=== PATIENT | male | born 1945 | race Hispanic/Latino ===

== ENCOUNTER 2019-12-14 14:10 | IRF | payer MEDICARE, OTHER, SELFPAY ==
--- NOTE | ~2019-12-14 | CT_ITS ---
EXAMINATION: CT soft tissue neck wo con DATE: 12/24/2019 14:17 INDICATION: Dysphagia. TECHNIQUE: Computed tomography (CT) of the neck was performed without intravenous contrast. Automated exposure control and iterative reconstruction technique were employed. The dose-length product was 5 92.73 mGy-cm. COMPARISON: None FINDINGS: There are likely changes of ocular lens replacement surgeries. There is an old blowout frac ture of medial wall of left orbit. There are surgical clips in right neck. There is fluid and gas claudy ng the left cervical carotid arteries. There is a 10 mm peripherally calcified nodule in right thyroi d lobe, likely not clinically significant. Median sternotomy wires and mediastinal surgical clips may be from coronary bypass grafting. There is a 16 x 10 mm mass in superficial left parotid gland. Ther e is multifocal dental disease. There is moderate cervical spondylosis. IMPRESSION: 1. Fluid and gas along the left cervical carotid arteries, consistent with recent carotid endarterect william. 2. Multifocal dental disease. 3. 16 x 10 mm mass in superficial left parotid gland. The differential diagnosis includes benign mixe d tumor, Warthin tumor, reactive lymphadenopathy, and less likely primary malignancy or rosa maria metasta tic disease. Reviewed, dictated and finalized at location A. IMPRESSION: 1. Fluid and gas along the left cervical carotid arteries, consistent with rece nt carotid endarterectomy. 2. Multifocal dental disease. 3. 16 x 10 mm mass in superficial left parotid gland. The differential diagnosi s includes benign mixed tumor, Warthin tumor, reactive lymphadenopathy, and les s likely primary malignancy or rosa maria metastatic disease.
--- NOTE | 2019-12-14 15:43 | ADMGEN ---
This patient, Leeroy Monte, was admitted to [facility] Room 220-01. Patient/family oriented to hospital policies and general routines including ID bracelet, bed and alarms, visiting hours, pain management, procedures, bathroom and other care routines, personal items, smoking policy, room service/diet, and visiting hours. Valuables list has been completed. Information on how to activate the Rapid Response Team has been discussed. Patient/Family are encouraged to report perceived risks to care and to ask questions if they do not understand what they are told or what they should do.
[2019-12-14 15:59] VITALS: BMI 19.9
[2019-12-14 16:25] VITALS: BP 154/59; PULSE 77; RESP 19; TEMP 36.6; O2SAT 100
[2019-12-14 17:30] VITALS: PULSE 77
[2019-12-14] MEDS: METOPROLOL SUCCINATE EXT REL 50 MG TABCR PO (17:30)
[2019-12-14] MEDS: ATORVASTATIN 40 MG TABLET PO (20:26)
[2019-12-14 21:11] VITALS: BP 145/55; PULSE 83; RESP 20; TEMP 36.8; O2SAT 100
[2019-12-15 05:14] LABS: Basophils Percent Auto 0.5 % (0.2-1.2); Eosinophils Absolute Auto 0.1 K/mm3 (0-0.3); Eosinophils Percent Auto 2.1 % (0-4.4); Hematocrit 29.6 % (42.0-52.0); Hemoglobin 9.6 g/dL (14.0-18.0); Immature Granulocyte Absolute 0.03 K/mm3 (0.00-0.031); Immature Granulocyte Percent A 0.5 % (0-0.5); Lymphocytes Absolute Auto 1.37 K/mm3 (0.9-3.2); Mean Corpuscular HGB Conc 32.4 g/dl (32-36); Mean Corpuscular Volume 95.5 fl (80-100); Mean Platelet Volume 11.3 fl (7.4-10.4); Monocytes Absolute Auto 0.7 K/mm3 (0.1-0.6); Monocytes Percent Auto 11.8 % (2.6-8.5); Neutrophils Absolute Auto 3.5 K/mm3 (1.3-6.7); Neutrophils Percent Auto 61.1 % (45.5-73.1); Platelet Count Result 201 k/mm3 (150-375); Red Cell Distribution Width 13.5 % (11.5-14.5); White Blood Count 5.7 K/mm3 (4.5-10.0)
[2019-12-15 05:35] LABS: Blood Urea Nitrogen 20 mg/dL (9-20); Calcium 8.7 mg/dL (8.4-10.2); Carbon Dioxide 29 mmol/L (22-30); Chloride 99 mmol/L (98-107); Estimated CRCL calculation 46 ml/min; Estimated Glomerular Filt Rate > 60; Glucose 135 mg/dL (75-110); Sodium 138 mmol/L (137-145)
[2019-12-15 06:00] VITALS: BP 161/62; PULSE 68; RESP 20; TEMP 36.6; O2SAT 100
[2019-12-15 08:00] VITALS: PULSE 68; RESP 20; O2SAT 100
--- NOTE | 2019-12-15 08:49 | PCSTNOTE ---
Bedside Swallow Evaluation This pt was seen for a bedside swallow evaluation following a CVA. He reports that his ST at another facility advised him to moisten food with liquid to ease swallowing. He had a bagel with breakfast this morning, moistened with coffee, and no signs or symptoms of aspiration occurred. He was also observed drinking thin liquid and eating pureed food. All trials were WFL. The pt reports that swallowing has gotten easier since the stroke. He was having more difficulty passing the bolus through the pharyngeal stage, but is no longer with the use of compensatory strategies. It is recommended that the pt continue to receive an oral diet of regular (level 7) foods and thin liquids. The pt should eat independently. He should continue to use his compensatory strategies of small bites and mixing solids with liquids. No skilled ST is warranted at this time for swallowing.
[2019-12-15 10:14] VITALS: PULSE 68
[2019-12-15] MEDS: ASPIRIN 81 MG CHEWABLE TABLET 324 MG PO (10:14)
[2019-12-15] MEDS: polyethylene glycoL 3350 17 GM POWD.PACK PO (10:14)
[2019-12-15] MEDS: METOPROLOL SUCCINATE EXT REL 50 MG TABCR PO (10:14)
--- NOTE | 2019-12-15 14:12 | REHAB_ITS ---
DATE OF SERVICE: 12/15/2019 A 74-year-old right-handed male has been admitted to [facility] Rehab Floor with the diagnosis of left body involvement that is right side of the brain secondary to cerebrovascular accident, admitted on 12/14/2019, seen on 12/15/2019 at 12 o'clock. HISTORY OF PRESENT ILLNESS: A 74-year-old right-handed male with past medical significant history of: 1. Diabetes mellitus. 2. Bilateral below-knee amputation. 3. Coronary artery disease. 4. Hypertension. Presented to [facility] on 12/03/2019, with right facial drooping and speech difficulties and with subsequent development of numbness, tingling and weakness of the left arm and left lower extremity. Neurologists were consulted. Carotid duplex study and MRI of the brain were done, which revealed severe stenosis of the left internal carotid artery. CT of the brain and neck was ordered, revealed severe narrowing of the left middle cerebral artery about 70% with severe critical stenosis of left cervical artery or cervical internal carotid artery about 95%, [id number] narrowing of the left vertebral artery V1 segment and intracranial portion of the right internal carotid artery in the cavernous portion, but the patient weakness however was on the same side. It was assumed that collateral flow was impaired supplying the right hemisphere, causing CV on the left side as per the neurologist's and the final diagnosis for left carotid TIA and right CVA, and he underwent left carotid endarterectomy on 12/09/2019. Postoperatively, experienced hypotension, developed UTI. He needed midodrine on 12/06/2019, completed 7-day course of ceftriaxone, 12/10/2019. Continued to have left-sided weakness, impaired balance, decreased gross motor control, and decreased safety awareness. He was using bilateral lower extremity prosthesis with the history that right side was done on 2004, left in 2010. He was started on DVT prophylaxis with heparin 5000 units twice a day. PAST MEDICAL HISTORY: Atherosclerotic heart disease, coronary artery disease, congestive heart failure, chronic kidney disease, diabetes mellitus, dyslipidemia, hypertension, urinary retention, renal stones with hematuria, gout, vitamin D deficiency, diabetes mellitus, history of bilateral amputation of the lower extremities, history of open heart surgery, and history of never smoking, never drinking. MEDICATIONS: At the time of transfer included: 1. Aspirin 324 mg daily. 2. Atorvastatin 40 mg every night. 3. Heparin 5000 units twice a day. 4. Metoprolol 550 mg daily. 5. Midodrine 2.5 mg 3 times a day. 6. Polyethylene glycol 17 g daily. PRIOR LEVEL OF FUNCTIONS: Independently eating, oral hygiene, toileting, shower, bathing, upper body, lower body, footwear, rolling left and right, right [id number]-[id number], rbgcc-ej-[id number], xwz-hl-ziveh, bed to chair, chair to bed transfer, toilet transfer, walking assistive device, rolling walker, walking distance 500 feet. He stairs independent only 2 steps, expressing complex message without difficulty with speech that is clear and easy to understand. LEVEL OF FUNCTION AT THE TIME OF ADMISSION: Eating screening, independent eating. Partial moderate assistance for the oral hygiene, toileting, bathing, shower, upper body dressing, lower body dressing, footwear, rolling left and right, xnf-dv-mcjky, vizgb-ov-lfq. Substantial maximal assistance for sit to stand, chair to bed, bed to transfer. Maximal and substantial assistant office manager same for the toilet transfer, walking, rolling walker assistive device. Walking distance 20 feet. His stairs not tested. At the time of acceptance, he was independent, expect improvement in self-care, transfer and expected improvement was to make him independent in the self-care transfers, social cognitive
[2019-12-15 14:29] VITALS: BP 98/48; PULSE 69; RESP 18; TEMP 36.8; O2SAT 100
[2019-12-15] MEDS: ATORVASTATIN 40 MG TABLET PO (20:32)
[2019-12-15] MEDS: MELATONIN 3 MG TABLET 6 MG PO (21:02)
[2019-12-15 22:00] VITALS: BP 157/59; PULSE 65; RESP 17; TEMP 36.6; O2SAT 100
[2019-12-16 06:00] VITALS: BP 148/72; PULSE 88; RESP 18; TEMP 36.6; O2SAT 98
[2019-12-16 08:47] VITALS: PULSE 88
[2019-12-16] MEDS: polyethylene glycoL 3350 17 GM POWD.PACK PO (08:47)
[2019-12-16] MEDS: METOPROLOL SUCCINATE EXT REL 50 MG TABCR PO (08:47)
[2019-12-16] MEDS: ASPIRIN 81 MG CHEWABLE TABLET 324 MG PO (08:47)
--- NOTE | 2019-12-16 11:16 | RPD ---
INDIVIDUALIZED PLAN OF CARE FOR Leeroy Monte Brief Synthesis of Pre-Admission Screen, Post-Admission Evaluation and Therapy Evaluations: The patient presents to rehab with right cerebrovascular accident. Comorbidities include Left carotid TIA, severe left carotid artery stenosis status post left carotid endarterectomy, hypertension, hypotension, left-sided weakness, bilateral below knee amputations, diabetes mellitus, microcytic anemia, vitamin D deficiency, congestive heart failure, chronic kidney disease, gout, left upper extremity edema, dyslipidemia, hyperkalemia, mild dysarthria.The patient requires physician services for neurology services, medical oversight, and coordination of care. Emotional needs will be monitored as depression is a common sequelae of stroke. The patient needs physician monitoring and treatment of anemia, perioperative blood loss, monitoring for adverse reactions to new medications, monitoring for infection, and monitoring of blood pressure since new medication introduced to combat hypotension and is known to cause hypertensive emergency. The patient requires nursing services for frequent neuro checks, anticoagulation therapy, medication management and education, pressure relief and skin care management, monitoring of labs, bowel and bladder training, diabetes management and education, and fall/safety precautions. Deficits include:ADLs, Balance, Endurance, Mobility, Pain Management, ROM, Safety, Speech,Strength, Transfers Activity Therapy Specialist/Case Management for: Discharge Planning and Patient/Family Counseling Physical Therapy: 5 days per week for 90 minutes. Treatments may include: Therapeutic Exercise, Gait Training, Neuromuscular Re-education, Transfer Training, Community Reintegration, Bed Mobility, Patient/Family Education, Wheelchair Mobility Group Therapy/Concurrent Therapy Rationales: -Improve attention span during functional activities in a distracted environment. -Enhance problem solving and/or adequate judgment skills during functional activities in a distracted environment. -Promote increased safety awareness in a distracted environment to reduce fall risk with functional tasks, transfers, and ambulation to allow a more safe, self-sufficient return to the home environment. -Improve dynamic balance skills to promote safety and independence with functional activities in a distracted environment for maximum gain. Occupational Therapy: 5 days per week for 90 minutes. Treatments may include: Therapeutic Exercise, Therapeutic Activity, Cognitive Training, Self-Care Transfer Training, Community Reintegration, Home Management, Patient/Family Education, Wheelchair Mobility Training, Energy Conservation Training Group Therapy/Concurrent Therapy Rationales: -Allow therapist to observe and teach generalization and carry-over of skills learned in individual therapy. -Enhance problem solving and sequencing skills during therapeutic activities in a distracted environment. -Promote increased safety awareness in a realistic setting to reduce fall risk with functional tasks due to visual and verbal distractions. -Increase functional level with ADLs, ADL transfers and use of adaptive equipment through therapeutic activities with others while promoting safety to allow a more safe, self-sufficient return home. Medical Prognosis: Good Anticipated Length of Stay: 12 days Rehab Goals: Eating Goal: 06-Independent Oral Hygiene Goal: 06-Independent Toileting Hygiene Goal: 03-Partial/Moderate Assistance Shower/Bathe Self Goal: 05-Setup or Clean Up Assistance Upper Body Dressing Goal: 06-Independent Lower Body Dressing Goal: 05-Setup or Clean Up Assistance Putting On/Taking Off Footwear Goal: 05-Setup or Clean Up Assistance Rolling Left and Right Goal: 06-Independent Sit to Lying Goal: 06-Independent Lying to Sitting on Side of Bed Goal: 06-Independent Sit to Stand Goal: 06-Independent Chair/Zrf-ye-Rmqrd Transfer Goal: 06-Independent Toilet
[2019-12-16 13:37] VITALS: BMI 19.9
[2019-12-16 14:00] VITALS: BP 122/45; PULSE 62; RESP 19; TEMP 36.6; O2SAT 100
--- NOTE | 2019-12-16 15:24 | REHAB_ITS ---
DATE OF SERVICE: 12/14/2019 PRIMARY REHAB IMPAIRMENT CATEGORY: Stroke. ETIOLOGICAL DIAGNOSIS: Right cerebrovascular accident. The patient was seen [id number] yesterday and admission history and physical examination was dictated, but this is being re-dictated, more papers are available. HISTORY OF PRESENT ILLNESS: A 74-year-old right-handed male with past medical history of significant: 1. Diabetes mellitus. 2. Bilateral below-knee amputations. 3. Coronary artery disease. 4. Hypertension. Initially presented to [facility] on 12/03/2019, with right facial droop and speech difficulties and subsequently developed numbness and tingling and weakness of the left upper extremity and left lower extremity. Neurology service was consulted and the patient underwent carotid duplex scan and MRI of the brain, which revealed severe stenosis of the left internal carotid artery with the left-sided weakness. CT of the brain and neck were ordered and revealed severe narrowing of the left middle cerebral artery about 70% with severe critical stenosis of left cervical artery or cervical internal carotid artery about 95% and a [id number]-nn-mprcoz narrowing of the left vertebral artery V1 segment and moderate narrowing of the intracranial portion of the right internal carotid artery in the cavernous portion. The patient weakness however was on the same side of the critical narrowing. Dr. De Dios was consulted, who concluded that, because of severe stenosis, collateral flow was impaired, supplying the right hemisphere, causing a cerebrovascular accident on the same side that is on the left side. Final diagnoses were left carotid TIA and right CVA. He underwent a left carotid endarterectomy on 12/09/2019. Postoperatively, he experienced hypotension, urinary tract infection. Midodrine was started on 12/06/2019. He was monitored so that he does not experience hypertensive emergency. He completed 7-day course of ceftriaxone, 12/10/2019. Physical examination continued to reveal left-sided weakness, impaired balance, decreased gross motor control, and decreased safety awareness. He had bilateral lower extremity prosthesis, which he was going to bring with him. DVT prophylaxis was started with subcutaneous heparin 5000 units twice daily. Therapy was initiated at the acute care facility and patient transferred to us from [facility] on 12/14/2019. SURGERY OR FALL: The patient had a major surgery in the 100 days prior to admission, has had carotid endarterectomy. He has had no falls in the past year. He has had no fall with injury in the past year. PAST MEDICAL HISTORY: Atherosclerotic heart disease of the [place] coronary artery without angina pectoralis, coronary artery disease, congestive heart failure, chronic kidney disease, diabetes mellitus, dyslipidemia, essential hypertension, UTI, kidney stones, hematuria, renal disorder, gout, microcytic anemia, vitamin D deficiency, and diabetes mellitus. PAST SURGICAL HISTORY: Bilateral amputation of the lower extremities upon and open heart surgery. SOCIAL HISTORY: Never smoker. No alcohol. No drug use. FAMILY HISTORY: Unknown. PRIOR LEVEL OF FUNCTION: Eating was independent, so as the oral care, toileting hygiene, shower and bathing, upper body, lower body, footwear, rolling left and right, sit to lying, lying to sitting, sit to stand, bed to chair, toilet transfer. The patient was previously ambulating independently with rolling walker 500 feet and he was able to complete 2 stairs independently. CURRENT LEVEL OF FUNCTION: Eating was independent. Oral care with partial moderate assistance. Toilet and hygiene were partial moderate assistance, so as the shower and bathing. Upper body dressing, lower body dressing, footwear, rolli
[2019-12-16] MEDS: ATORVASTATIN 40 MG TABLET PO (19:54)
[2019-12-16] MEDS: MELATONIN 3 MG TABLET 6 MG PO (19:56)
[2019-12-16 22:00] VITALS: BP 152/56; PULSE 63; RESP 17; TEMP 36.5; O2SAT 100
[2019-12-17 06:00] VITALS: BP 145/54; PULSE 66; RESP 18; TEMP 36.6; O2SAT 99
[2019-12-17 08:00] VITALS: PULSE 66; RESP 18; O2SAT 99
[2019-12-17 09:24] VITALS: PULSE 66
[2019-12-17] MEDS: polyethylene glycoL 3350 17 GM POWD.PACK PO (09:24)
[2019-12-17] MEDS: ASPIRIN 81 MG CHEWABLE TABLET 324 MG PO (09:24)
[2019-12-17] MEDS: METOPROLOL SUCCINATE EXT REL 50 MG TABCR PO (09:24)
[2019-12-17 14:00] VITALS: BP 112/43; PULSE 62; RESP 16; TEMP 36.5; O2SAT 100
--- NOTE | 2019-12-17 14:16 | WPDNEURORHBP ---
Subjective Date/time seen: 12/17/19 14:16 Interval history: this is a 74-year-old gentleman who is here after eating suffering from right hemispheric stroke which was presumed to be related to severe left internal carotid artery stenosis with the collateral flow disturbance and he underwent a left-sided carotid endarterectomy at the [facility] the patient is left with the left-sided hemiparesis which is his dominant side meaning that he is left-hand dominant the patient has bilateral BKA related to multiple factors and has left-sided hemiparesis and normal language functions He denies any headache nausea vomiting chest Chest pain and fever chills sore throat Review of Systems Review of Systems: All systems reviewed & are unremarkable except as noted in HPI and below Functional Status Ambulation Ability Ability to Ambulate 10 Feet: Minimum Assistance X 1 Ambulation Assistive Devices: Walker, Wheeled Transfers Ability Ability to Transfer In/Out of Chair: Minimum Assistance X 1 Exam Const: General: comfortable and no acute distress HENMT: General nose exam: Normal nares present Mouth: Yes moist mucous membranes Eyes: General: appearance normal, both eyes and all related structures Neck: Neck: supple and no JVD Resp: Effort & Inspection: normal respiratory effort Auscultation: clear to auscultation bilaterally Cardio: Rate: regular rate Rhythm: regular rhythm GI: GI Palp: Yes Soft to palpation Auscultation: normal bowel sounds Skin: General skin exam: normal color and no rashes or lesions noted Neuro: Other: patient is awake alert will oriented time place and person has a normal speech language function normal cranial examination left-sided hemiparesis and bilateral tkiqj-ajr-amac amputation Extrem: Other: evidence of peripheral neuropathy and peripheral vascular disease with bilateral lower extremity amputation below the knee Psych: Mental Status: mental status grossly normal Objective Data Vital Signs Vital Signs: Vital Signs - 24 hr 12/16/19 22:00 12/17/19 06:00 12/17/19 08:00 Temperature 36.5 C 36.6 C Pulse Rate 63 66 66 Respiratory Rate 17 18 18 Blood Pressure 152/56 H 145/54 H Pulse Oximetry 100 99 99 12/17/19 09:24 Temperature Pulse Rate 66 Respiratory Rate Blood Pressure Pulse Oximetry Intake/Output Intake/Output: Intake & Output 12/14/19 12/15/19 12/16/19 12/17/19 23:59 23:59 23:59 23:59 Intake Total 246 301 3436 1080 Balance 467 874 9828 1080 Meds/Results Medications: Active Medications Generic Name Dose Route Start Last Admin Trade Name Freq PRN Reason Stop Dose Admin Hydrocodone Bitart/Acetaminophen 1 tab 12/14/19 16:34 [place] 5-325 Mg PO Q4H PRN Pain (Scale Score 7-10) Aspirin 324 mg 12/15/19 09:00 12/17/19 09:24 Aspirin Chewable PO 324 mg DAILY JAY Administration Atorvastatin Calcium 40 mg 12/14/19 21:00 12/16/19 19:54 Lipitor PO 40 mg HS JAY Administration Bisacodyl 10 mg 12/14/19 16:34 Dulcolax Suppository RECTAL DAILY PRN Constipation Melatonin 6 mg 12/15/19 21:00 12/16/19 19:56 Melatonin PO 6 mg HS JAY Administration Metoprolol Succinate 50 mg 12/14/19 17:00 12/17/19 09:24 Toprol Xl PO 50 mg DAILY JAY Administration Polyethylene Glycol 17 gm 12/15/19 09:00 12/17/19 09:24 Miralax PO 17 gm DAILY JAY Administration Progress Note: A&P Assessment and Plan (1) Stroke: Code(s): I63.9 - Cerebral infarction, unspecified Status: Acute (2) Hemiparesis of left dominant side: Code(s): G81.92 - Hemiplegia, unspecified affecting left dominant side Status: Acute (3) S/P bilateral BKA (below knee amputation): Code(s): Z89.512 - Acquired absence of left leg below knee; Z89.511 - Acquired absence of right leg below knee Status: Acute (4) Diabetes mellitus: Code(s): E11.9 - Type 2 diabetes mellitus wit
[2019-12-17] MEDS: ATORVASTATIN 40 MG TABLET PO (20:17)
[2019-12-17] MEDS: MELATONIN 3 MG TABLET 6 MG PO (20:17)
[2019-12-17 21:13] VITALS: BP 116/48; PULSE 62; RESP 20; TEMP 36.4; O2SAT 98
[2019-12-18 06:00] VITALS: BP 153/60; PULSE 66; RESP 16; TEMP 36.3; O2SAT 100
[2019-12-18 08:00] VITALS: PULSE 66; RESP 16; O2SAT 100
[2019-12-18 08:50] VITALS: PULSE 66
[2019-12-18] MEDS: METOPROLOL SUCCINATE EXT REL 50 MG TABCR PO (08:50)
[2019-12-18] MEDS: polyethylene glycoL 3350 17 GM POWD.PACK PO (08:51)
[2019-12-18] MEDS: ASPIRIN 81 MG CHEWABLE TABLET 324 MG PO (08:51)
--- NOTE | 2019-12-18 10:12 | WPDNEURORHBP ---
Subjective Date/time seen: 12/18/19 10:12 Interval history: this 74-year-old patient is here after having had stroke of the right cerebral hemisphere which has left him with left-sided hemiparesis his also bilateral lower extremity [id number] amputation and wears the prosthesis and doing well with that He is complaining of urinary incontinence which is unusual we will check the urinalysis along with the culture he denies any burning or pain around the genitalia No headache nausea vomiting chest pain or shortness of breath fever chills sore throat abdominal pain diarrhea Review of Systems Review of Systems: All systems reviewed & are unremarkable except as noted in HPI and below Functional Status Ambulation Ability Ability to Ambulate 10 Feet: Minimum Assistance X 1 Ambulation Assistive Devices: Walker, Wheeled Transfers Ability Ability to Transfer In/Out of Chair: Minimum Assistance X 1 Exam Const: General: comfortable and no acute distress HENMT: General nose exam: Normal nares present Mouth: Yes moist mucous membranes Eyes: General: appearance normal, both eyes and all related structures Neck: Neck: supple and no JVD Resp: Effort & Inspection: normal respiratory effort Auscultation: clear to auscultation bilaterally Cardio: Rate: regular rate Rhythm: regular rhythm GI: GI Palp: Yes Soft to palpation Auscultation: normal bowel sounds : Male General Exam: Yes normal external exam Skin: General skin exam: normal color and no rashes or lesions noted Neuro: Other: patient is awake and alert will oriented time place and person speech and language functions are normal cranial exam shows normal he does have left-sided hemiparesis and evidence of peripheral neuropathy along with the bilateral below the knee amputation using the prosthesis Extrem: Other: bilateral [id number]-gwx-zwpa amputation using the prosthesis quite we Psych: Mental Status: mental status grossly normal Objective Data Vital Signs Vital Signs: Vital Signs - 24 hr 12/17/19 14:00 12/17/19 21:13 12/18/19 06:00 Temperature 36.5 C 36.4 C L 36.3 C L Pulse Rate 62 62 66 Respiratory Rate 16 20 16 Blood Pressure 112/43 L 116/48 L 153/60 H Pulse Oximetry 100 98 100 12/18/19 08:00 12/18/19 08:50 Temperature Pulse Rate 66 66 Respiratory Rate 16 Blood Pressure Pulse Oximetry 100 Intake/Output Intake/Output: Intake & Output 0312/16/19 12/17/19 12/18/19 23:59 23:59 23:59 23:59 Intake Total 920 1090 1560 140 Balance 920 1090 1560 140 Meds/Results Medications: Active Medications Generic Name Dose Route Start Last Admin Trade Name Freq PRN Reason Stop Dose Admin Hydrocodone Bitart/Acetaminophen 1 tab 12/14/19 16:34 [place] 5-325 Mg PO Q4H PRN Pain (Scale Score 7-10) Aspirin 324 mg 12/15/19 09:00 12/18/19 08:51 Aspirin Chewable PO 324 mg DAILY JAY Administration Atorvastatin Calcium 40 mg 12/14/19 21:00 12/17/19 20:17 Lipitor PO 40 mg HS JAY Administration Bisacodyl 10 mg 12/14/19 16:34 Dulcolax Suppository RECTAL DAILY PRN Constipation Melatonin 6 mg 12/15/19 21:00 12/17/19 20:17 Melatonin PO 6 mg HS JAY Administration Metoprolol Succinate 50 mg 12/14/19 17:00 12/18/19 08:50 Toprol Xl PO 50 mg DAILY JAY Administration Polyethylene Glycol 17 gm 12/15/19 09:00 12/18/19 08:51 Miralax PO 17 gm DAILY JAY Administration Progress Note: A&P Assessment and Plan (1) Coronary artery disease: Code(s): I25.10 - Atherosclerotic heart disease of [place] coronary artery without angina pectoris Status: Acute (2) Chronic kidney disease: Code(s): N18.9 - Chronic kidney disease, unspecified Status: Acute (3) Diabetes mellitus: Code(s): E11.9 - Type 2 diabetes mellitus without complications Status: Acute (4) S/P bilateral BKA (below knee amputation): Code(s): Z89.512 - Acquired absenc
[2019-12-18 14:00] VITALS: BP 114/43; PULSE 69; RESP 18; TEMP 36.2; O2SAT 100
[2019-12-18] MEDS: MELATONIN 3 MG TABLET 6 MG PO (20:08)
[2019-12-18] MEDS: ATORVASTATIN 40 MG TABLET PO (20:08)
[2019-12-18 21:45] VITALS: BP 120/40; PULSE 66; RESP 16; TEMP 36.3; O2SAT 100
[2019-12-19 06:00] VITALS: BP 142/59; PULSE 64; RESP 20; TEMP 36.4; O2SAT 100
[2019-12-19 08:56] VITALS: PULSE 64
[2019-12-19] MEDS: METOPROLOL SUCCINATE EXT REL 50 MG TABCR PO (08:56)
[2019-12-19] MEDS: ASPIRIN 81 MG CHEWABLE TABLET 324 MG PO (08:58)
--- NOTE | 2019-12-19 11:05 | WPDNEURORHBP ---
Subjective Date/time seen: 12/19/19 11:05 Interval history: this 74-year-old gentleman is here with a right hemispheric stroke and status post left-sided carotid endarterectomy he has a left hemiparesis which is improving his also bilateral mbnma-bpt-lehe amputation related to diabetes and most likely peripheral vascular disease. Patient denies any headache nausea vomiting chest pain or shortness of breath and quite comfortable moving forward no fever no chills no sore throat Review of Systems Review of Systems: All systems reviewed & are unremarkable except as noted in HPI and below Functional Status Ambulation Ability Ability to Ambulate 10 Feet: Minimum Assistance X 1 Ability to Ambulate 50 Feet With 2 Turns: Minimum Assistance X 1 Ambulation Assistive Devices: Walker, Wheeled Transfers Ability Ability to Transfer In/Out of Chair: Minimum Assistance X 1 Exam Const: General: comfortable and no acute distress HENMT: General nose exam: Normal nares present Mouth: Yes moist mucous membranes Eyes: General: appearance normal, both eyes and all related structures Neck: Neck: supple and no JVD Resp: Effort & Inspection: normal respiratory effort Auscultation: clear to auscultation bilaterally Cardio: Rate: regular rate Rhythm: regular rhythm GI: GI Palp: Yes Soft to palpation Auscultation: normal bowel sounds Skin: General skin exam: normal color and no rashes or lesions noted Neuro: Other: patient is awake alert well oriented time place and person speech and language functions are normal cranial exam she has normal left-sided hemiparesis is improving the patient is doing fairly well with the prosthesis after having had bilateral rglnx-ehm-[id number] amputation related to diabetes mellitus peripheral neuropathy and peripheral vascular disease Extrem: Other: the prostheses are well fitted and he is able to ambulate quite good after having had bilateral below the knee amputation few years ago Psych: Mental Status: mental status grossly normal Objective Data Vital Signs Vital Signs: Vital Signs - 24 hr 12/18/19 14:00 12/18/19 21:45 12/19/19 06:00 Temperature 36.2 C L 36.3 C L 36.4 C Pulse Rate 69 66 64 Respiratory Rate 18 16 20 Blood Pressure 114/43 L 120/40 L 142/59 H Pulse Oximetry 100 100 100 12/19/19 08:56 Temperature Pulse Rate 64 Respiratory Rate Blood Pressure Pulse Oximetry Intake/Output Intake/Output: Intake & Output 03/0212/17/19 12/18/19 12/19/19 23:59 23:59 23:59 23:59 Intake Total 1090 1560 600 240 Balance 1090 1560 600 240 Meds/Results Medications: Active Medications Generic Name Dose Route Start Last Admin Trade Name Freq PRN Reason Stop Dose Admin Hydrocodone Bitart/Acetaminophen 1 tab 12/14/19 16:34 [place] 5-325 Mg PO Q4H PRN Pain (Scale Score 7-10) Aspirin 324 mg 12/15/19 09:00 12/19/19 08:58 Aspirin Chewable PO 324 mg DAILY JAY Administration Atorvastatin Calcium 40 mg 12/14/19 21:00 12/18/19 20:08 Lipitor PO 40 mg HS JAY Administration Bisacodyl 10 mg 12/14/19 16:34 Dulcolax Suppository RECTAL DAILY PRN Constipation Melatonin 6 mg 12/15/19 21:00 12/18/19 20:08 Melatonin PO 6 mg HS JAY Administration Metoprolol Succinate 50 mg 12/14/19 17:00 12/19/19 08:56 Toprol Xl PO 50 mg DAILY JAY Administration Polyethylene Glycol 17 gm 12/15/19 09:00 12/18/19 08:51 Miralax PO 17 gm DAILY JAY Administration Progress Note: A&P Assessment and Plan (1) Coronary artery disease: Code(s): I25.10 - Atherosclerotic heart disease of [place] coronary artery without angina pectoris Status: Acute (2) Chronic kidney disease: Code(s): N18.9 - Chronic kidney disease, unspecified Status: Acute (3) Diabetes mellitus: Code(s): E11.9 - Type 2 diabetes mellitus without complications Status: Acute (4) S/P bilateral BKA (below knee amputation): C
[2019-12-19 14:00] VITALS: BP 103/41; PULSE 56; RESP 18; TEMP 36.3; O2SAT 100
[2019-12-19] MEDS: polyethylene glycoL 3350 17 GM POWD.PACK PO (16:42)
[2019-12-19] MEDS: ATORVASTATIN 40 MG TABLET PO (20:50)
[2019-12-19] MEDS: MELATONIN 3 MG TABLET 6 MG PO (20:50)
[2019-12-19 22:00] VITALS: BP 152/55; PULSE 62; RESP 20; TEMP 36.3; O2SAT 100
[2019-12-20 06:00] VITALS: BP 135/44; PULSE 57; RESP 16; TEMP 36.2; O2SAT 100
[2019-12-20 08:50] VITALS: BP 136/46; PULSE 79
[2019-12-20 08:55] VITALS: PULSE 79
[2019-12-20] MEDS: METOPROLOL SUCCINATE EXT REL 50 MG TABCR PO (08:55)
[2019-12-20] MEDS: ASPIRIN 81 MG CHEWABLE TABLET 324 MG PO (08:55)
[2019-12-20 14:00] VITALS: BP 137/57; PULSE 83; RESP 18; TEMP 36.5; O2SAT 98
--- NOTE | 2019-12-20 14:40 | WPDNEURORHBP ---
Subjective Date/time seen: 12/20/19 14:40 Interval history: this 74-year-old the diabetic is here after having had a stroke of right cerebral hemisphere with left hemiparesis and also status post left sided carotid endarterectomy. The patient denies any new complaints particularly no fever no chills no sore throat no headache nausea vomiting chest pain or shortness of breath She is doing very well in the therapy and the left-sided hemiparesis improving along with his ability to navigate with the bilateral prosthesis which she has had for some time for bilateral [id number]-hvs-jrlb amputation Review of Systems Review of Systems: All systems reviewed & are unremarkable except as noted in HPI and below Functional Status Ambulation Ability Ability to Ambulate 10 Feet: Minimum Assistance X 1 Ability to Ambulate 50 Feet With 2 Turns: Minimum Assistance X 1 Ambulation Assistive Devices: Walker, Wheeled Transfers Ability Ability to Transfer In/Out of Chair: Minimum Assistance X 1 Exam Const: General: comfortable and no acute distress HENMT: General nose exam: Normal nares present Mouth: Yes moist mucous membranes Eyes: General: appearance normal, both eyes and all related structures Neck: Neck: supple and no JVD Resp: Effort & Inspection: normal respiratory effort Auscultation: clear to auscultation bilaterally Cardio: Rate: regular rate Rhythm: regular rhythm GI: GI Palp: Yes Soft to palpation Auscultation: normal bowel sounds Skin: General skin exam: normal color and no rashes or lesions noted Neuro: Other: the patient is awake and alert well oriented in time place and person the speech and language functions are normal the cranial examination normal the left-sided hemiparesis is improving his ability to navigate in walking with bilateral prosthesis for bilateral qqney-reg-pymi amputation is quite good and he is making strides and movement Extrem: Other: bilateral bcirg-xzj-sczs amputation with prosthesis Psych: Mental Status: mental status grossly normal Objective Data Vital Signs Vital Signs: Vital Signs - 24 hr 12/19/19 22:00 12/20/19 06:00 12/20/19 08:50 Temperature 36.3 C L 36.2 C L Pulse Rate 62 57 L 79 Respiratory Rate 20 16 Blood Pressure 152/55 H 135/44 L 136/46 L Pulse Oximetry 100 100 12/20/19 08:55 Temperature Pulse Rate 79 Respiratory Rate Blood Pressure Pulse Oximetry Intake/Output Intake/Output: Intake & Output 12/17/19 12/18/19 12/19/19 12/20/19 23:59 23:59 23:59 23:59 Intake Total 1560 600 960 480 Balance 1560 600 960 480 Meds/Results Medications: Active Medications Generic Name Dose Route Start Last Admin Trade Name Freq PRN Reason Stop Dose Admin Hydrocodone Bitart/Acetaminophen 1 tab 12/14/19 16:34 [place] 5-325 Mg PO Q4H PRN Pain (Scale Score 7-10) Aspirin 324 mg 12/15/19 09:00 12/20/19 08:55 Aspirin Chewable PO 324 mg DAILY JAY Administration Atorvastatin Calcium 40 mg 12/14/19 21:00 12/19/19 20:50 Lipitor PO 40 mg HS JAY Administration Bisacodyl 10 mg 12/14/19 16:34 Dulcolax Suppository RECTAL DAILY PRN Constipation Melatonin 6 mg 12/15/19 21:00 12/19/19 20:50 Melatonin PO 6 mg HS JAY Administration Metoprolol Succinate 50 mg 12/14/19 17:00 12/20/19 08:55 Toprol Xl PO 50 mg DAILY JAY Administration Polyethylene Glycol 17 gm 12/20/19 10:58 Miralax PO DAILY PRN Constipation Progress Note: A&P Assessment and Plan (1) Coronary artery disease: Code(s): I25.10 - Atherosclerotic heart disease of [place] coronary artery without angina pectoris Status: Acute (2) Chronic kidney disease: Code(s): N18.9 - Chronic kidney disease, unspecified Status: Acute (3) Diabetes mellitus: Code(s): E11.9 - Type 2 diabetes mellitus without complications Status: Acute (4) S/P bilateral BKA (below knee amputation): Code(s): Z89.51
[2019-12-20] MEDS: ATORVASTATIN 40 MG TABLET PO (20:19)
[2019-12-20] MEDS: MELATONIN 3 MG TABLET 6 MG PO (20:21)
[2019-12-20 22:00] VITALS: BP 121/57; PULSE 62; RESP 18; TEMP 36.2; O2SAT 100
[2019-12-21 06:00] VITALS: BP 152/59; PULSE 66; RESP 18; TEMP 36.5; O2SAT 97
[2019-12-21 08:46] VITALS: PULSE 66
[2019-12-21] MEDS: METOPROLOL SUCCINATE EXT REL 50 MG TABCR PO (08:46)
[2019-12-21] MEDS: ASPIRIN 81 MG CHEWABLE TABLET 324 MG PO (08:46)
[2019-12-21 14:00] VITALS: BP 125/50; PULSE 68; RESP 18; TEMP 36.3; O2SAT 98
[2019-12-21] MEDS: MELATONIN 3 MG TABLET 6 MG PO (20:08)
[2019-12-21] MEDS: ATORVASTATIN 40 MG TABLET PO (20:08)
[2019-12-21 22:00] VITALS: BP 117/38; PULSE 73; RESP 18; TEMP 37.2; O2SAT 100
--- NOTE | 2019-12-22 03:25 | PC.NURSE ---
Daylight Savings Time For Daylight Savings Time Ending in the Fall - Clocks are moved back. For Daylight Savings Time Beginning in the Spring - Clocks are moved ahead. For [facility], the time of change occurs at 0200 hrs. Time is taken from the field observer. This entry on the patient's chart recognizes the change in time reflected during documentation. Example: 2 entries for vital signs may be charted for 0200 hrs.
[2019-12-22 05:05] LABS: Basophils Percent Auto 0.7 % (0.2-1.2); Eosinophils Absolute Auto 0.1 K/mm3 (0-0.3); Eosinophils Percent Auto 2.2 % (0-4.4); Hematocrit 28.1 % (42.0-52.0); Hemoglobin 8.9 g/dL (14.0-18.0); Immature Granulocyte Absolute 0.03 K/mm3 (0.00-0.031); Immature Granulocyte Percent A 0.5 % (0-0.5); Lymphocytes Absolute Auto 1.75 K/mm3 (0.9-3.2); Lymphocytes Percent Auto 29.2 % (18.3-44.2); Mean Corpuscular HGB Conc 31.7 g/dl (32-36); Mean Corpuscular Hemoglobin 30.7 pg (26-34); Mean Corpuscular Volume 96.9 fl (80-100); Mean Platelet Volume 10.8 fl (7.4-10.4); Monocytes Absolute Auto 0.5 K/mm3 (0.1-0.6); Monocytes Percent Auto 8.8 % (2.6-8.5); Neutrophils Absolute Auto 3.5 K/mm3 (1.3-6.7); Neutrophils Percent Auto 58.6 % (45.5-73.1); Platelet Count Result 201 k/mm3 (150-375); Red Cell Distribution Width 13.8 % (11.5-14.5)
[2019-12-22 05:22] LABS: Potassium 3.5 mmol/L (3.4-5.0)
[2019-12-22 05:34] LABS: Blood Urea Nitrogen 31 mg/dL (9-20); Calcium 8.5 mg/dL (8.4-10.2); Carbon Dioxide 27 mmol/L (22-30); Chloride 107 mmol/L (98-107); Estimated CRCL calculation 39 ml/min; Estimated Glomerular Filt Rate 59; Glucose 106 mg/dL (75-110); Sodium 139 mmol/L (137-145)
[2019-12-22 06:00] VITALS: BP 146/73; PULSE 70; RESP 18; TEMP 36.4; O2SAT 100
[2019-12-22 08:54] VITALS: PULSE 70
[2019-12-22] MEDS: METOPROLOL SUCCINATE EXT REL 50 MG TABCR PO (08:54)
[2019-12-22] MEDS: ASPIRIN 81 MG CHEWABLE TABLET 324 MG PO (08:54)
--- NOTE | 2019-12-22 14:32 | WPDNEURORHBP ---
Subjective Date/time seen: 12/22/19 14:32 Interval history: this 74-year-old gentleman with underlying bilateral fewnd-bhv-jvob amputation with prosthesis was admitted because of right hemispheric stroke with left-sided hemiparesis from which he is improving quite a bit and doing very well he does not have any new complaints particularly no headache double vision blurred vision nausea vomiting or any further weakness no chest pain no shortness of breath no bowel or bladder dysfunction Review of Systems Review of Systems: All systems reviewed & are unremarkable except as noted in HPI and below Functional Status Ambulation Ability Ability to Ambulate 10 Feet: Contact Guard Ability to Ambulate 50 Feet With 2 Turns: Contact Guard Ambulation Assistive Devices: Walker, Wheeled Transfers Ability Ability to Transfer In/Out of Chair: Minimum Assistance X 1 Exam Const: General: comfortable and no acute distress HENMT: General nose exam: Normal nares present Mouth: Yes moist mucous membranes Eyes: General: appearance normal, both eyes and all related structures Neck: Neck: supple and no JVD Resp: Effort & Inspection: normal respiratory effort Auscultation: clear to auscultation bilaterally Cardio: Rate: regular rate Rhythm: regular rhythm GI: GI Palp: Yes Soft to palpation Auscultation: normal bowel sounds Skin: General skin exam: normal color and no rashes or lesions noted Neuro: Other: patient is awake and alert overall oriented time place person has normal speech and lung function normal cranial examination left-sided hemiparesis improving bilateral lower extremity amputation sites are clean and with the prosthesis he is doing fairly well Extrem: Other: bilateral BKA with prosthesis Psych: Mental Status: mental status grossly normal Objective Data Vital Signs Vital Signs: Vital Signs - 24 hr 12/21/19 14:00 12/21/19 22:00 12/22/19 06:00 Temperature 36.3 C L 37.2 C 36.4 C L Pulse Rate 68 73 70 Respiratory Rate 18 18 18 Blood Pressure 125/50 L 117/38 L 146/73 H Pulse Oximetry 98 100 100 12/22/19 08:54 Temperature Pulse Rate 70 Respiratory Rate Blood Pressure Pulse Oximetry Intake/Output Intake/Output: Intake & Output 12/19/19 12/20/19 12/21/19 12/23/19 23:59 23:59 23:59 00:59 Intake Total 960 720 720 480 Balance 960 720 720 480 Meds/Results Medications: Active Medications Generic Name Dose Route Start Last Admin Trade Name Freq PRN Reason Stop Dose Admin Hydrocodone Bitart/Acetaminophen 1 tab 12/14/19 16:34 [place] 5-325 Mg PO Q4H PRN Pain (Scale Score 7-10) Aspirin 324 mg 12/15/19 09:00 12/22/19 08:54 Aspirin Chewable PO 324 mg DAILY JAY Administration Atorvastatin Calcium 40 mg 12/14/19 21:00 12/21/19 20:08 Lipitor PO 40 mg HS JAY Administration Bisacodyl 10 mg 12/14/19 16:34 Dulcolax Suppository RECTAL DAILY PRN Constipation Melatonin 6 mg 12/15/19 21:00 12/21/19 20:08 Melatonin PO 6 mg HS JAY Administration Metoprolol Succinate 50 mg 12/14/19 17:00 12/22/19 08:54 Toprol Xl PO 50 mg DAILY JAY Administration Polyethylene Glycol 17 gm 12/20/19 10:58 Miralax PO DAILY PRN Constipation Labs Labs: Laboratory Results - last 24 hr 12/22/19 12/22/19 04:37 04:37 WBC 6.0 RBC 2.90 L Hgb 8.9 L Hct 28.1 L MCV 96.9 MCH 30.7 MCHC 31.7 L RDW 13.8 Plt Count 201 MPV 10.8 H Immature Gran % (Auto) 0.5 Neut % (Auto) 58.6 Lymph % (Auto) 29.2 [place] % (Auto) 8.8 H Eos % (Auto) 2.2 Baso % (Auto) 0.7 Lymph # (Auto) 1.75 [place] # (Auto) 0.5 Eos # (Auto) 0.1 Baso # (Auto) 0.0 Abs Immat Gran (auto) 0.03 Absolute Neuts (auto) 3.5 Absolute Nucleated RBC 0.0 Nucleated RBC % 0.0 Sodium 139 Potassium 3.5 Chloride 107 Carbon Dioxide 27 BUN 31 H D Creatinine 1.20 Estim Creat Clear Calc 39 Estimated GFR 59 Glucose 106 C
[2019-12-22 15:20] VITALS: BP 136/51; PULSE 64; RESP 16; TEMP 36.7; O2SAT 98
[2019-12-22] MEDS: ATORVASTATIN 40 MG TABLET PO (20:08)
[2019-12-22] MEDS: MELATONIN 3 MG TABLET 6 MG PO (20:09)
[2019-12-22 21:20] VITALS: BP 154/45; PULSE 71; RESP 16; TEMP 36.6; O2SAT 100
[2019-12-23 06:00] VITALS: BP 169/64; PULSE 66; RESP 16; TEMP 36.5; O2SAT 100
[2019-12-23 08:46] VITALS: PULSE 66
[2019-12-23] MEDS: METOPROLOL SUCCINATE EXT REL 50 MG TABCR PO (08:46)
[2019-12-23] MEDS: ASPIRIN 81 MG CHEWABLE TABLET 324 MG PO (08:46)
[2019-12-23 14:00] VITALS: BP 156/66; PULSE 78; RESP 20; TEMP 36.6; O2SAT 97
--- NOTE | 2019-12-23 14:23 | PCDIET ---
Nutrition Follow-Up Complete: Decreased fat/sodium needs related to cardiovascular disease as evidenced by CVA, hx HTN and CAD s/p CABG. Patient to consume 75% of meals or greater. Goal met. Eating 75-100% of meals Nutrition recommendation: Continuation of Regular diet too ensure nutrition requirements are met. Last recorded weight is 56 kg. Bowel Motility:+BM 12/21 Labs Reviewed: Hgb(8.9), BUN(31), Glu(106) Meds Noted:[place], [place] Additional Notes: Pt states appetite is good. No GI related issues noted. Pt is eating well. Follow up in 7 days.
--- NOTE | 2019-12-23 15:02 | PCNSR ---
On 12/23/19, the student, Mariella Oshea, provided care and completed [facility] documentation on this patient. I have reviewed the student's documentation and agree with the findings.
[2019-12-23] MEDS: ATORVASTATIN 40 MG TABLET PO (20:01)
[2019-12-23] MEDS: MELATONIN 3 MG TABLET 6 MG PO (20:04)
[2019-12-23 22:00] VITALS: BP 122/40; PULSE 55; RESP 18; TEMP 36.4; O2SAT 100
[2019-12-24 06:00] VITALS: BP 162/55; PULSE 66; RESP 18; TEMP 36.4; O2SAT 98
[2019-12-24 09:39] VITALS: PULSE 66
[2019-12-24] MEDS: ASPIRIN 81 MG CHEWABLE TABLET 324 MG PO (09:39)
[2019-12-24] MEDS: METOPROLOL SUCCINATE EXT REL 50 MG TABCR PO (09:39)
--- NOTE | 2019-12-24 11:47 | WPDNEURORHBP ---
Subjective Date/time seen: 12/24/19 11:47 Interval history: this 78-year-old gentleman who is status post bilateral uprph-iih-fobo amputation in the distant past comes to us with the stroke affecting his left side and is still eating quite a bit of assistance the fact is that the patient is left-handed and which is his of course dominant side and still difficult for him to use that left hand as well as he did before the stroke The patient denies any headache nausea vomiting chest pain shortness of breath fever chills sore throat He does have periodic urinary incontinence and will need bladder training as per recommendation of the nursing 1st line and PT OT which will be quite appropriate Review of Systems Review of Systems: All systems reviewed & are unremarkable except as noted in HPI and below Functional Status Ambulation Ability Ability to Ambulate 10 Feet: Contact Guard Ability to Ambulate 50 Feet With 2 Turns: Contact Guard Ability to Ambulate 150 Feet: Contact Guard Ambulation Assistive Devices: Walker, Wheeled Transfers Ability Ability to Transfer In/Out of Chair: Minimum Assistance X 1 Exam Const: General: comfortable and no acute distress HENMT: General nose exam: Normal nares present Mouth: Yes moist mucous membranes Eyes: General: appearance normal, both eyes and all related structures Neck: Neck: supple and no JVD Resp: Effort & Inspection: normal respiratory effort Auscultation: clear to auscultation bilaterally Cardio: Rate: regular rate Rhythm: regular rhythm GI: GI Palp: Yes Soft to palpation Auscultation: normal bowel sounds Skin: General skin exam: normal color and no rashes or lesions noted Neuro: Other: patient is awake alert well oriented time place and person has normal speech and language functions normal cranial examination except some flattening of the left nasal labial fold and left-sided hemiparesis arm more so involved than the leg and of course he does have evidence of bilateral azqxz-fgu-bjsp amputation in using the prosthesis for some time Extrem: Other: bilateral btiwo-ceo-kcdz amputation using prosthesis Psych: Mental Status: mental status grossly normal Objective Data Vital Signs Vital Signs: Vital Signs - 24 hr 12/23/19 14:00 12/23/19 22:00 12/24/19 06:00 Temperature 36.6 C 36.4 C L 36.4 C Pulse Rate 78 55 L 66 Respiratory Rate 20 18 18 Blood Pressure 156/66 H 122/40 L 162/55 H Pulse Oximetry 97 100 98 12/24/19 09:39 Temperature Pulse Rate 66 Respiratory Rate Blood Pressure Pulse Oximetry Intake/Output Intake/Output: Intake & Output 12/21/19 12/22/19 12/23/19 12/24/19 22:59 23:59 23:59 23:59 Intake Total 960 360 Balance 960 360 Meds/Results Medications: Active Medications Generic Name Dose Route Start Last Admin Trade Name Freq PRN Reason Stop Dose Admin Hydrocodone Bitart/Acetaminophen 1 tab 12/14/19 16:34 [place] 5-325 Mg PO Q4H PRN Pain (Scale Score 7-10) Aspirin 324 mg 12/15/19 09:00 12/24/19 09:39 Aspirin Chewable PO 324 mg DAILY JAY Administration Atorvastatin Calcium 40 mg 12/14/19 21:00 12/23/19 20:01 Lipitor PO 40 mg HS JAY Administration Bisacodyl 10 mg 12/14/19 16:34 Dulcolax Suppository RECTAL DAILY PRN Constipation Melatonin 6 mg 12/15/19 21:00 12/23/19 20:04 Melatonin PO 6 mg HS JAY Administration Metoprolol Succinate 50 mg 12/14/19 17:00 12/24/19 09:39 Toprol Xl PO 50 mg DAILY JAY Administration Polyethylene Glycol 17 gm 12/20/19 10:58 Miralax PO DAILY PRN Constipation Progress Note: A&P Assessment and Plan (1) Coronary artery disease: Code(s): I25.10 - Atherosclerotic heart disease of [place] coronary artery without angina pectoris Status: Acute (2) Chronic kidney disease: Code(s): N18.9 - Chronic kidney disease, unspecified Status: Acute (3) Diabetes mellitus: Code(s): E11.9 -
[2019-12-24 14:00] VITALS: BP 168/58; PULSE 71; RESP 16; TEMP 36.6; O2SAT 100
[2019-12-24] MEDS: MELATONIN 3 MG TABLET 6 MG PO (20:41)
[2019-12-24] MEDS: ATORVASTATIN 40 MG TABLET PO (20:41)
[2019-12-24 22:00] VITALS: BP 139/31; PULSE 61; RESP 17; TEMP 36.6; O2SAT 100
[2019-12-25 06:00] VITALS: BP 132/44; PULSE 65; RESP 17; TEMP 36.6; O2SAT 98
[2019-12-25 09:24] VITALS: PULSE 65
[2019-12-25] MEDS: METOPROLOL SUCCINATE EXT REL 50 MG TABCR PO (09:24)
[2019-12-25] MEDS: ASPIRIN 81 MG CHEWABLE TABLET 324 MG PO (09:24)
--- NOTE | 2019-12-25 12:35 | WPDNEURORHBP ---
Subjective Date/time seen: 12/25/19 12:35 Interval history: this is a 74-year-old gentleman who is bilateral lower extremity amputee with prosthesis was admitted because of stroke affecting right-sided cerebral hemisphere with left-sided hemiparesis from which he is improving his quite happy with the care he is receiving and engage in therapy quite well The patient denies any headache nausea vomiting chest pain shortness of breath lateralizing paresthesias or any new weakness no fever chills sore throat Review of Systems Review of Systems: All systems reviewed & are unremarkable except as noted in HPI and below Functional Status Ambulation Ability Ability to Ambulate 10 Feet: Contact Guard Ability to Ambulate 50 Feet With 2 Turns: Contact Guard Ability to Ambulate 150 Feet: Contact Guard Ambulation Assistive Devices: Walker, Wheeled Transfers Ability Ability to Transfer In/Out of Chair: Minimum Assistance X 1 Exam Const: General: comfortable and no acute distress HENMT: General nose exam: Normal nares present Mouth: Yes moist mucous membranes Eyes: General: appearance normal, both eyes and all related structures Neck: Neck: supple and no JVD Resp: Effort & Inspection: normal respiratory effort Auscultation: clear to auscultation bilaterally Cardio: Rate: regular rate Rhythm: regular rhythm GI: GI Palp: Yes Soft to palpation Skin: General skin exam: normal color and no rashes or lesions noted Neuro: Other: patient is awake and alert well oriented time present person is speech language functions are normal cranial examination is normal left-sided hemiparesis improving the rgpmh-qxj-uziq amputation bilaterally with prosthesis is working quite well Extrem: Other: bilateral below the knee amputation with prosthesis is working well Psych: Mental Status: mental status grossly normal Objective Data Vital Signs Vital Signs: Vital Signs - 24 hr 12/24/19 14:00 12/24/19 22:00 12/25/19 06:00 Temperature 36.6 C 36.6 C 36.6 C Pulse Rate 71 61 65 Respiratory Rate 16 17 17 Blood Pressure 168/58 H 139/31 L 132/44 L Pulse Oximetry 100 100 98 12/25/19 09:24 Temperature Pulse Rate 65 Respiratory Rate Blood Pressure Pulse Oximetry Intake/Output Intake/Output: Intake & Output 12/22/19 12/23/19 12/24/19 12/25/19 23:59 23:59 23:59 23:59 Intake Total 960 760 500 Balance 960 760 500 Meds/Results Medications: Active Medications Generic Name Dose Route Start Last Admin Trade Name Freq PRN Reason Stop Dose Admin Aspirin 324 mg 12/15/19 09:00 12/25/19 09:24 Aspirin Chewable PO 324 mg DAILY JAY Administration Atorvastatin Calcium 40 mg 12/14/19 21:00 12/24/19 20:41 Lipitor PO 40 mg HS JAY Administration Bisacodyl 10 mg 12/14/19 16:34 Dulcolax Suppository RECTAL DAILY PRN Constipation Melatonin 6 mg 12/15/19 21:00 12/24/19 20:41 Melatonin PO 6 mg HS JAY Administration Metoprolol Succinate 50 mg 12/14/19 17:00 12/25/19 09:24 Toprol Xl PO 50 mg DAILY JAY Administration Polyethylene Glycol 17 gm 12/20/19 10:58 Miralax PO DAILY PRN Constipation Radiology Results: ITS Impressions Soft Tissue Neck CT 12/24/19 14:23 IMPRESSION: 1. Fluid and gas along the left cervical carotid arteries, consistent with recent carotid endarterectomy. 2. Multifocal dental disease. 3. 16 x 10 mm mass in superficial left parotid gland. The differential diagnosis includes benign mixed tumor, Warthin tumor, reactive lymphadenopathy, and less likely primary malignancy or rosa maria metastatic disease. Progress Note: A&P Assessment and Plan (1) Coronary artery disease: Code(s): I25.10 - Atherosclerotic heart disease of [place] coronary artery without angina pectoris Status: Acute (2) Chronic kidney disease: Code(s): N18.9 - Chronic kidney disease, unspecified Status: Acute (3) Diabetes mellitus: Code(
[2019-12-25 14:00] VITALS: BP 146/72; PULSE 76; RESP 20; TEMP 36.2; O2SAT 100
[2019-12-25 19:57] VITALS: PULSE 76; RESP 20; O2SAT 100
[2019-12-25] MEDS: ATORVASTATIN 40 MG TABLET PO (21:44)
[2019-12-25] MEDS: MELATONIN 3 MG TABLET 6 MG PO (21:46)
[2019-12-25 22:00] VITALS: BP 129/49; PULSE 61; RESP 18; TEMP 36.2; O2SAT 100
[2019-12-26 06:00] VITALS: BP 126/58; PULSE 68; RESP 18; TEMP 36.3; O2SAT 100
--- NOTE | 2019-12-26 07:39 | PCPTNOTE ---
Leeroy Monte was evaluated for a wheeled walker on 12/26/2019 by this physical therapist. The wheeled walker will resolve patient's mobility limitations and will be used for ADL's within the home. The patient can safely use the wheeled walker to ambulate and perform transfers with bilateral prosthesis. ?The [walker] will resolve the patient?s mobility deficits, including limited left LE strength, standing balance and endurance.
--- NOTE | 2019-12-26 07:47 | PCPTNOTE ---
ABELARDO GAMBINO completed an inpatient rehab wheelchair evaluation on [facility] on 12/26/2019. The patient is unable to safely and independently ambulate household distances due to their current impairments. Their diagnosis is Right Cerebrovascular Accident (Stroke) and their impairments include decreased strength, decreased endurance, decreased range of motion, decreased balance, lower extremity weakness, and ataxia. The patient's weight bearing status is weight-bearing as tolerated on the bilateral lower legs. Patient wears bilateral BKA prosthesis. The patient demonstrates significant functional mobility limitations that impair their ability to participate in mobility-related activities of daily living (MRADLs), including toileting, feeding, dressing, grooming, and bathing in the customary locations in the home. These limitations cannot be sufficiently resolved by the use of an appropriately fitted cane or walker. It is recommended that the patient utilize a wheelchair for functional mobility within the home in order to facilitate optimal safety, independence and participation in all MRADL's and adequately access their home environment on a regular basis. The patient's home provides adequate access between rooms, maneuvering space, and surfaces to accommodate the recommended wheelchair. The use of a wheelchair for functional mobility is strongly recommended and the patient is receptive to using the wheelchair. The use of this wheelchair will significantly improve the patient's ability to participate in MRADLS and the patient will use it on a regular basis in the home. This will facilitate optimal safety, independence, and participation. The patient has demonstrated sufficient physical and mental capabilities needed to safely propel a manual wheelchair that is provided in the home during a typical day. Recommended Wheelchair Frame: 18 by 16 Recommended Wheelchair Cushion:gel cushion Wheelchair Leg Recommendations: removable leg rests anti-tippers, removable arm rests - Anti-tippers are recommended due to patient demonstrating increased risk for falls. They would benefit from anti-tippers with added safety and stabilization. Evaluating Therapist Date I agree with and certify that the above recommendation is medically necessary. Referring Physician Date I agree with and certify that the above recommendation is medically necessary. Referring Physician Date
[2019-12-26] MEDS: ASPIRIN 81 MG CHEWABLE TABLET 324 MG PO (09:38)
[2019-12-26] MEDS: METOPROLOL SUCCINATE EXT REL 50 MG TABCR PO (09:38)
[2019-12-26 14:00] VITALS: BP 142/68; PULSE 74; RESP 20; TEMP 36.6; O2SAT 100
[2019-12-26] MEDS: ATORVASTATIN 40 MG TABLET PO (20:12)
[2019-12-26] MEDS: MELATONIN 3 MG TABLET 6 MG PO (20:14)
[2019-12-26 22:00] VITALS: BP 176/60; PULSE 64; RESP 18; TEMP 36.2; O2SAT 100
[2019-12-27 06:00] VITALS: BP 142/50; PULSE 68; RESP 18; TEMP 36.2; O2SAT 100
--- NOTE | 2019-12-27 07:22 | WPDNEURORHBP ---
Subjective Date/time seen: December 26, 2019 at 9:00 a.m. 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 for which I have requested an ENT consult of which is pending patient denies any pain over there and that is at the site of the carotid endarterectomy has had performed earlier he denies any chest pain shortness of breath drop and headache nausea vomiting fevers chills or sore throat Review of Systems Review of Systems: All systems reviewed & are unremarkable except as noted in HPI and below Functional Status Ambulation Ability Ability to Ambulate 10 Feet: Contact Guard Ability to Ambulate 50 Feet With 2 Turns: Contact Guard Ability to Ambulate 150 Feet: Contact Guard Ambulation Assistive Devices: Walker, Wheeled Transfers Ability Ability to Transfer In/Out of Chair: Minimum Assistance X 1 Exam Const: General: comfortable and no acute distress HENMT: General nose exam: Normal nares present Mouth: Yes moist mucous membranes Other: soft tissue swelling at the left parotid great barely of without any tenderness or inflammation Eyes: General: appearance normal, both eyes and all related structures Neck: Neck: supple and no JVD Resp: Effort & Inspection: normal respiratory effort Auscultation: clear to auscultation bilaterally Cardio: Rate: regular rate Rhythm: regular rhythm GI: GI Palp: Yes Soft to palpation Auscultation: normal bowel sounds Skin: General skin exam: normal color and no rashes or lesions noted Neuro: Other: patient is awake alert has normal speech and language functions normal cranial examination mild left-sided hemiparesis along with the bilateral lower extremity amputation with prosthesis with which he is doing fairly well Extrem: Other: bilateral lower extremity [id number]-php-[id number] amputation with prosthesis is doing very well Psych: Mental Status: mental status grossly normal Objective Data Vital Signs Vital Signs: Vital Signs - 24 hr 12/26/19 14:00 12/26/19 22:00 12/27/19 06:00 Temperature 36.6 C 36.2 C L 36.2 C L Pulse Rate 74 64 68 Respiratory Rate 20 18 18 Blood Pressure 142/68 H 176/60 H 142/50 H Pulse Oximetry 100 100 100 Intake/Output Intake/Output: Intake & Output 12/24/19 12/25/19 12/26/19 12/27/19 23:59 23:59 23:59 23:59 Intake Total 760 980 720 Balance 760 980 720 Meds/Results Medications: Active Medications Generic Name Dose Route Start Last Admin Trade Name Freq PRN Reason Stop Dose Admin Aspirin 324 mg 12/15/19 09:00 12/26/19 09:38 Aspirin Chewable PO 324 mg DAILY JAY Administration Atorvastatin Calcium 40 mg 12/14/19 21:00 12/26/19 20:12 Lipitor PO 40 mg HS JAY Administration Bisacodyl 10 mg 12/14/19 16:34 Dulcolax Suppository RECTAL DAILY PRN Constipation Melatonin 6 mg 12/15/19 21:00 12/26/19 20:14 Melatonin PO 6 mg HS JAY Administration Metoprolol Succinate 50 mg 12/14/19 17:00 12/26/19 09:38 Toprol Xl PO 50 mg DAILY JAY Administration Polyethylene Glycol 17 gm 12/20/19 10:58 Miralax PO DAILY PRN Constipation Radiology Results: ITS Impressions Soft Tissue Neck CT 12/24/19 14:23 IMPRESSION: 1. Fluid and gas along the left cervical carotid arteries, consistent with recent carotid endarterectomy. 2. Multifocal dental disease. 3. 16 x 10 mm mass in superficial left parotid gland. The differential diagnosis includes benign mixed tumor, Warthin tumor, reactive lymphadenopathy, and less likely primary malignancy or rosa maria metastatic disease. 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
[2019-12-27 08:50] VITALS: PULSE 72
[2019-12-27] MEDS: ASPIRIN 81 MG CHEWABLE TABLET 324 MG PO (08:50)
[2019-12-27] MEDS: METOPROLOL SUCCINATE EXT REL 50 MG TABCR PO (08:50)
--- NOTE | 2019-12-27 10:20 | WPDNEURORHBP ---
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 on the left side on the CT scan of the shaft tissue of the neck the notes will be reviewed patient denies any headache drop pain nausea vomiting chest pain or shortness of breath fever chills or sore throat Review of Systems Review of Systems: All systems reviewed & are unremarkable except as noted in HPI and below Functional Status Ambulation Ability Ability to Ambulate 10 Feet: Contact Guard Ability to Ambulate 50 Feet With 2 Turns: Contact Guard Ability to Ambulate 150 Feet: Contact Guard Ambulation Assistive Devices: Walker, Wheeled Transfers Ability Ability to Transfer In/Out of Chair: Minimum Assistance X 1 Exam Const: General: comfortable and no acute distress HENMT: General nose exam: Normal nares present Mouth: Yes moist mucous membranes Eyes: General: appearance normal, both eyes and all related structures Neck: Neck: supple and no JVD Resp: Effort & Inspection: normal respiratory effort Auscultation: clear to auscultation bilaterally Cardio: Rate: regular rate Rhythm: regular rhythm GI: GI Palp: Yes Soft to palpation Auscultation: normal bowel sounds Skin: General skin exam: normal color and no rashes or lesions noted Neuro: Other: patient is awake and alert well oriented time place and person the speech language functions are normal left-sided hemiparesis is improving overall picture is of significant improvement he is using his prosthesis quite well without any problem Extrem: Other: bilateral lower extremity [id number]-[id number]-wgow amputation with well fitted prosthesis which are being used by the patient quite well Psych: Mental Status: mental status grossly normal Objective Data Vital Signs Vital Signs: Vital Signs - 24 hr 12/26/19 14:00 12/26/19 22:00 12/27/19 06:00 Temperature 36.6 C 36.2 C L 36.2 C L Pulse Rate 74 64 68 Respiratory Rate 20 18 18 Blood Pressure 142/68 H 176/60 H 142/50 H Pulse Oximetry 100 100 100 12/27/19 08:50 Temperature Pulse Rate 72 Respiratory Rate Blood Pressure Pulse Oximetry Intake/Output Intake/Output: Intake & Output 12/24/19 12/25/19 12/26/19 12/27/19 23:59 23:59 23:59 23:59 Intake Total 760 980 720 500 Balance 760 980 720 500 Meds/Results Medications: Active Medications Generic Name Dose Route Start Last Admin Trade Name Freq PRN Reason Stop Dose Admin Aspirin 324 mg 12/15/19 09:00 12/27/19 08:50 Aspirin Chewable PO 324 mg DAILY JAY Administration Atorvastatin Calcium 40 mg 12/14/19 21:00 12/26/19 20:12 Lipitor PO 40 mg HS JAY Administration Bisacodyl 10 mg 12/14/19 16:34 Dulcolax Suppository RECTAL DAILY PRN Constipation Melatonin 6 mg 12/15/19 21:00 12/26/19 20:14 Melatonin PO 6 mg HS JAY Administration Metoprolol Succinate 50 mg 12/14/19 17:00 12/27/19 08:50 Toprol Xl PO 50 mg DAILY JAY Administration Polyethylene Glycol 17 gm 12/20/19 10:58 Miralax PO DAILY PRN Constipation Radiology Results: ITS Impressions Soft Tissue Neck CT 12/24/19 14:23 IMPRESSION: 1. Fluid and gas along the left cervical carotid arteries, consistent with recent carotid endarterectomy. 2. Multifocal dental disease. 3. 16 x 10 mm mass in superficial left parotid gland. The differential diagnosis includes benign mixed tumor, Warthin tumor, reactive lymphadenopathy, and less likely primary malignancy or rosa maria metastatic disease. 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
[2019-12-27 14:00] VITALS: BP 139/50; PULSE 68; RESP 18; TEMP 36.6; O2SAT 99
[2019-12-27] MEDS: ATORVASTATIN 40 MG TABLET PO (20:18)
[2019-12-27] MEDS: MELATONIN 3 MG TABLET 6 MG PO (20:18)
[2019-12-27 20:44] VITALS: BP 149/74; PULSE 61; RESP 18; TEMP 36.3; O2SAT 100
[2019-12-28 06:00] VITALS: BP 133/47; PULSE 82; RESP 16; TEMP 36.2; O2SAT 99
[2019-12-28 09:43] VITALS: PULSE 82
[2019-12-28] MEDS: ASPIRIN 81 MG CHEWABLE TABLET 324 MG PO (09:43)
[2019-12-28] MEDS: METOPROLOL SUCCINATE EXT REL 50 MG TABCR PO (09:43)
--- NOTE | 2019-12-28 11:40 | WPDNEURORHBP ---
Subjective Date/time seen: 12/28/19 11:40 continues to be involved in therapy ,ENT notes awaited Functional Status Ambulation Ability Ability to Ambulate 10 Feet: Standby Assistance Ability to Ambulate 50 Feet With 2 Turns: Standby Assistance Ability to Ambulate 150 Feet: Standby Assistance Ambulation Assistive Devices: Walker, Wheeled Transfers Ability Ability to Transfer In/Out of Chair: Minimum Assistance X 1 Exam Const: General: cooperative and no acute distress Nutritional Appearance: average body habitus Orientation/consciousness: oriented to person, oriented to place, oriented to time and patient oriented x3 HENMT: General nose exam: Normal external nose present Face and sinus: normal facial exam Mouth: Yes Normal oral and palatal mucosa present Throat: uvula midline Neck: Neck: normal visual inspection (left s/p endarterectomy and with bilateral bruits) and trachea midline Carotids: bruit (bilateral) Chest: Chest palpation & inspection: normal inspection of the chest Resp: Effort & Inspection: normal respiratory effort and able to speak in complete sentences Auscultation: clear to auscultation bilaterally Cardio: Rate: regular rate Rhythm: regular rhythm GI: Auscultation: normal bowel sounds Skin: Wounds: no wounds (neck S/P endarterectomy healthy scar) Neuro: General: patient oriented x3 and moves all extremities Cranial nerves: Yes CN's II-XII intact bilaterally, Yes Equal, round and reactive pupils present, Yes Nystagmus not present, Yes Normal facial strength present, Yes Midline tongue present, Yes Symmetric palate elevation present, Yes Normal hearing present, Yes Ability to bilaterally rotate head present and Yes Ability to bilaterally elevate shoulders present Cognition (Neuro): normal cognition Speech: normal speech Motor exam (neuro): 5/5 motor strength present throughout (left hemiparesis) Sensory Exam: Sensory deficit (Neuro) Deep tendon reflexes (DTR's): Right triceps reflex intensity grade: 1+, Left triceps reflex intensity grade: 2+, Rt Biceps (C5, C6): 1+, Left biceps reflex intensity grade: 2+, Right brachioradialis reflex intensity grade: 1+, Left brachioradialis reflex intensity grade: 2+, Right patellar reflex intensity grade: 1+, Left patellar reflex intensity grade: 2+, Right ankle reflex intensity grade: 1+ and Left ankle reflex intensity grade: 2+ Plantar Reflex Responses: downgoing: right and upgoing (positive Babinski): left Psych: Appearance: grossly normal Mental Status: mental status grossly normal Speech and movement: Normal speech and movement present Affect: normal affect Thought process: Normal thought process present Insight: Fair insight present (Psych) Objective Data Vital Signs Vital Signs: Vital Signs - 24 hr 12/27/19 14:00 12/27/19 20:44 12/28/19 06:00 Temperature 36.6 C 36.3 C L 36.2 C L Pulse Rate 68 61 82 Respiratory Rate 18 18 16 Blood Pressure 139/50 L 149/74 H 133/47 L Pulse Oximetry 99 100 99 12/28/19 09:43 Temperature Pulse Rate 82 Respiratory Rate Blood Pressure Pulse Oximetry Intake/Output Intake/Output: Intake & Output 12/25/19 12/26/19 12/27/19 12/28/19 23:59 23:59 23:59 23:59 Intake Total 406 715 9651 300 Balance 648 261 6522 300 Meds/Results Medications: Active Medications Generic Name Dose Route Start Last Admin Trade Name Freq PRN Reason Stop Dose Admin Aspirin 324 mg 12/15/19 09:00 12/28/19 09:43 Aspirin Chewable PO 324 mg DAILY JAY Administration Atorvastatin Calcium 40 mg 12/14/19 21:00 12/27/19 20:18 Lipitor PO 40 mg HS JAY Administration Bisacodyl 10 mg 12/14/19 16:34 Dulcolax Suppository RECTAL DAILY PRN Constipation Melatonin 6 mg 12/15/19 21:00 12/27/19 20:18 Melatonin PO 6 mg HS JAY Administration Metoprolol Succinate 50 mg 12/14/19 17:00 12/28/19 09:43 Toprol Xl PO 50 mg DAILY JAY Administration Polyethylene Glycol 17 gm 12/20/19 10:58
[2019-12-28 14:00] VITALS: BP 134/46; PULSE 74; RESP 18; TEMP 36.8; O2SAT 100
[2019-12-28] MEDS: ATORVASTATIN 40 MG TABLET PO (20:52)
[2019-12-28] MEDS: MELATONIN 3 MG TABLET 6 MG PO (20:52)
[2019-12-28 22:00] VITALS: BP 127/42; PULSE 59; RESP 16; TEMP 36.3; O2SAT 99
[2019-12-29 04:43] LABS: Basophils Percent Auto 0.6 % (0.2-1.2); Eosinophils Absolute Auto 0.1 K/mm3 (0-0.3); Hematocrit 30.1 % (42.0-52.0); Hemoglobin 9.6 g/dL (14.0-18.0); Immature Granulocyte Absolute 0.03 K/mm3 (0.00-0.031); Immature Granulocyte Percent A 0.4 % (0-0.5); Lymphocytes Absolute Auto 1.97 K/mm3 (0.9-3.2); Lymphocytes Percent Auto 28.1 % (18.3-44.2); Mean Corpuscular HGB Conc 31.9 g/dl (32-36); Mean Corpuscular Hemoglobin 30.8 pg (26-34); Mean Corpuscular Volume 96.5 fl (80-100); Mean Platelet Volume 11.1 fl (7.4-10.4); Monocytes Absolute Auto 0.7 K/mm3 (0.1-0.6); Monocytes Percent Auto 9.7 % (2.6-8.5); Neutrophils Absolute Auto 4.1 K/mm3 (1.3-6.7); Neutrophils Percent Auto 59.2 % (45.5-73.1); Platelet Count Result 162 k/mm3 (150-375); Red Blood Count 3.12 M/mm3 (4.6-6.20)
[2019-12-29 05:00] LABS: Blood Urea Nitrogen 27 mg/dL (9-20); Calcium 8.8 mg/dL (8.4-10.2); Carbon Dioxide 28 mmol/L (22-30); Chloride 107 mmol/L (98-107); Estimated CRCL calculation 51 ml/min; Estimated Glomerular Filt Rate > 60; Glucose 102 mg/dL (75-110); Potassium 3.6 mmol/L (3.4-5.0); Sodium 137 mmol/L (137-145)
[2019-12-29 06:00] VITALS: BP 158/60; PULSE 71; RESP 16; TEMP 36.4; O2SAT 100
[2019-12-29] MEDS: ASPIRIN 81 MG CHEWABLE TABLET 324 MG PO (08:56)
[2019-12-29 08:57] VITALS: PULSE 71
[2019-12-29] MEDS: METOPROLOL SUCCINATE EXT REL 50 MG TABCR PO (08:57)
[2019-12-29 14:00] VITALS: BP 170/57; PULSE 67; RESP 16; TEMP 36.1; O2SAT 98
--- NOTE | 2019-12-29 18:59 | PC.NURSE ---
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
[2019-12-29] MEDS: MELATONIN 3 MG TABLET 6 MG PO (20:55)
[2019-12-29] MEDS: ATORVASTATIN 40 MG TABLET PO (20:55)
[2019-12-29 22:00] VITALS: BP 148/76; PULSE 82; RESP 20; TEMP 36.6; O2SAT 97
[2019-12-30 06:00] VITALS: BP 134/62; PULSE 88; RESP 18; TEMP 36.7; O2SAT 17
[2019-12-30 08:41] VITALS: PULSE 88
[2019-12-30] MEDS: ASPIRIN 81 MG CHEWABLE TABLET 324 MG PO (08:41)
[2019-12-30] MEDS: METOPROLOL SUCCINATE EXT REL 50 MG TABCR PO (08:41)
[2019-12-30 14:00] VITALS: BP 140/56; PULSE 65; RESP 16; TEMP 36.5; O2SAT 97
--- NOTE | 2019-12-30 14:22 | PCDIET ---
Nutrition Follow-Up Complete: Nutrition Diagnosis: Decreased fat/sodium needs related to cardiovascular disease as evidenced by CVA, hx HTN and CAD s/p CABG. Nutrition Goal: Patient to consume 75% of meals or greater. Goal met. Patient consuming 100% of most meals on regular diet. Recommend heart healthy diet to reduce risk of future CVA. Last recorded weight is 56 kg. Recommend obtaining new weight. Bowel Motility: +BM today. Labs Reviewed: BUN (27), Hgb (9.6), Hct (30.1) Meds Noted: prn Dulcolax and Miralax Additional Notes: Right neck incision; no pressure ulcers. Will continue to monitor with same goal. Nutrition Monitoring and Evaluation: Follow up in 7 days.
[2019-12-30 19:53] VITALS: PULSE 65; RESP 16; O2SAT 97
[2019-12-30] MEDS: MELATONIN 3 MG TABLET 6 MG PO (21:47)
[2019-12-30] MEDS: ATORVASTATIN 40 MG TABLET PO (21:47)
[2019-12-30 22:00] VITALS: BP 179/49; PULSE 69; RESP 18; TEMP 36.6; O2SAT 100
[2019-12-31 06:00] VITALS: BP 157/57; PULSE 66; RESP 18; TEMP 36.1; O2SAT 100
[2019-12-31 09:08] VITALS: PULSE 66
[2019-12-31] MEDS: METOPROLOL SUCCINATE EXT REL 50 MG TABCR PO (09:08)
[2019-12-31] MEDS: ASPIRIN 81 MG CHEWABLE TABLET 324 MG PO (09:21)
--- NOTE | 2019-12-31 13:56 | WPDNEURORHBP ---
Subjective Date/time seen: 12/31/19 13:56 Interval history: This 74-year-old gentleman is here after having had right hemispheric stroke with left hemiparesis superimposed bilateral [id number] amputation several years ago he is using the prosthesis quite well and has improved overall neurologically and is ready to be discharged tomorrow he was present for the team conference questions were answered and the patient will be discharged tomorrow he denies any headache nausea vomiting chest pain shortness of breath fever chills or sore throat Review of Systems Review of Systems: All systems reviewed & are unremarkable except as noted in HPI and below Functional Status Ambulation Ability Ability to Ambulate 10 Feet: Standby Assistance Ability to Ambulate 50 Feet With 2 Turns: Standby Assistance Ability to Ambulate 150 Feet: Standby Assistance Ambulation Assistive Devices: Walker, Wheeled Transfers Ability Ability to Transfer In/Out of Chair: Standby Assistance Exam Const: General: comfortable and no acute distress HENMT: General nose exam: Normal nares present Mouth: Yes moist mucous membranes Eyes: General: appearance normal, both eyes and all related structures Neck: Neck: supple and no JVD Resp: Effort & Inspection: normal respiratory effort Auscultation: clear to auscultation bilaterally Cardio: Rate: regular rate Rhythm: regular rhythm GI: GI Palp: Yes Soft to palpation Auscultation: normal bowel sounds Skin: General skin exam: normal color and no rashes or lesions noted Neuro: Other: patient is awake alert well oriented time place and person speech language functions are normal cranial examination is normal his left-sided hemiparesis has significantly improved and he is doing very well with his prosthesis which has been using for some time for bilateral quojy-twq-huvd amputation Extrem: Other: bilateral lebta-hmf-qnby amputation along with the prosthesis doin Psych: Mental Status: mental status grossly normal Objective Data Vital Signs Vital Signs: Vital Signs - 24 hr 12/30/19 14:00 12/30/19 19:53 12/30/19 22:00 Temperature 36.5 C 36.6 C Pulse Rate 65 65 69 Respiratory Rate 16 16 18 Blood Pressure 140/56 L 179/49 H Pulse Oximetry 97 97 100 12/31/19 06:00 12/31/19 09:08 Temperature 36.1 C L Pulse Rate 66 66 Respiratory Rate 18 Blood Pressure 157/57 H Pulse Oximetry 100 Intake/Output Intake/Output: Intake & Output 12/28/19 12/29/19 12/30/19 12/31/19 23:59 23:59 23:59 23:59 Intake Total 357 245 6133 980 Balance 280 713 4294 980 Meds/Results Medications: Active Medications Generic Name Dose Route Start Last Admin Trade Name Freq PRN Reason Stop Dose Admin Aspirin 324 mg 12/15/19 09:00 12/31/19 09:21 Aspirin Chewable PO 324 mg DAILY JAY Administration Atorvastatin Calcium 40 mg 12/14/19 21:00 12/30/19 21:47 Lipitor PO 40 mg HS JAY Administration Bisacodyl 10 mg 12/14/19 16:34 Dulcolax Suppository RECTAL DAILY PRN Constipation Melatonin 6 mg 12/15/19 21:00 12/30/19 21:47 Melatonin PO 6 mg HS JAY Administration Metoprolol Succinate 50 mg 12/14/19 17:00 12/31/19 09:08 Toprol Xl PO 50 mg DAILY JAY Administration Polyethylene Glycol 17 gm 12/20/19 10:58 Miralax PO DAILY PRN Constipation Radiology Results: ITS Impressions Soft Tissue Neck CT 12/24/19 14:23 IMPRESSION: 1. Fluid and gas along the left cervical carotid arteries, consistent with recent carotid endarterectomy. 2. Multifocal dental disease. 3. 16 x 10 mm mass in superficial left parotid gland. The differential diagnosis includes benign mixed tumor, Warthin tumor, reactive lymphadenopathy, and less likely primary malignancy or rosa maria metastatic disease. 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
[2019-12-31 14:00] VITALS: BP 133/50; PULSE 58; RESP 19; TEMP 36.4; O2SAT 100
[2019-12-31] MEDS: ATORVASTATIN 40 MG TABLET PO (20:31)
[2019-12-31] MEDS: MELATONIN 3 MG TABLET 6 MG PO (20:31)
[2019-12-31 22:00] VITALS: BP 141/51; PULSE 61; RESP 18; TEMP 36.6; O2SAT 100
[2020-01-01 06:00] VITALS: BP 153/68; PULSE 60; RESP 20; TEMP 36.8; O2SAT 98
[2020-01-01 08:23] VITALS: PULSE 60
[2020-01-01] MEDS: METOPROLOL SUCCINATE EXT REL 50 MG TABCR PO (08:23)
[2020-01-01] MEDS: ASPIRIN 81 MG CHEWABLE TABLET 324 MG PO (08:23)
--- NOTE | 2020-01-02 08:51 | P.CONS_ITS ---
HPI Data of Consult Date/Time: 01/02/20 08:51 Requesting Physician: Josue Gama MD Primary Care Provider: UNKNOWN,DOCTOR Consult Narrative Narrative: Leeroy Monte is a 74 year old male small parotid mass no tx PMFSH Past Medical History Medical History (Updated 12/27/19 @ 07:24 by Josue Gama MD) Chronic kidney disease Coronary artery disease Diabetes mellitus Surgical History Surgical History (Updated 12/17/19 @ 14:21 by Josue Gama MD) S/P bilateral BKA (below knee amputation) Family History Family History (Updated 12/14/19 @ 15:57 by Tamara Figueroa RN) Other Unknown family medical history Social History Social History Smoking status: Never smoker Alcohol intake: never Substance use: never Spiritual care concerns: No Agree to blood products: Yes Meds Home Medications and Allergies Home Medications Medication Instructions Recorded Confirmed Type bisacodyl 10 mg [place] DAILY PRN 12/14/19 12/14/19 History hydrocodone-acetaminophen [[place]] 1 tablet PO Q4H PRN 12/14/19 12/14/19 History atorvastatin 40 mg PO HS #30 tablet 12/31/19 Rx melatonin 6 mg PO HS #0 tablet 12/31/19 Rx metoprolol succinate 50 mg PO DAILY #30 tablet 12/31/19 Rx Allergies Allergy/AdvReac Type Severity Reaction Status Date / Time No Known Allergies Allergy Verified 12/14/19 22:22 Results Labs CBC & Chem 7: 12/29/19 04:31 12/29/19 04:31
--- NOTE | 2020-01-07 11:39 | PM.DS ---
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 - Neoplasm of unspecified behavior of digestive system Status: Acute (2) Coronary artery disease: Code(s): I25.10 - Atherosclerotic heart disease of [place] coronary artery without angina pectoris Status: Acute (3) Chronic kidney disease: Code(s): N18.9 - Chronic kidney disease, unspecified Status: Acute (4) Diabetes mellitus: Code(s): E11.9 - Type 2 diabetes mellitus without complications Status: Acute (5) S/P bilateral BKA (below knee amputation): Code(s): Z89.512 - Acquired absence of left leg below knee; Z89.511 - Acquired absence of right leg below knee Status: Acute (6) Hemiparesis of left dominant side: Code(s): G81.92 - Hemiplegia, unspecified affecting left dominant side Status: Acute (7) Stroke: Code(s): I63.9 - Cerebral infarction, unspecified Status: Acute DS: Summary Hospital Course Reason for hospitalization: this 74-year-old right-handed male was admitted because of having had stroke which left him left hemiparesis is comorbidities include diabetes mellitus bilateral atkpc-wvf-ijvi amputations with prosthesis he has been using coronary artery disease and hypertension to the course of hospitalization I did the soft tissue neck and was found to have a small carotid mass for which he ENT consultation was obtained and they felt it was of no clinical significance and is not of any treatment the patient did quite well and was able to achieved the following in the band measures Eating independent oral hygiene independent 12 thing supervision bathing supervision upper body dressing set up lower body dressing supervision and no falls work Time Spent with Patient Time attestation: Total time spent providing and/or coordinating discharge services: Exam Const: General: comfortable and no acute distress HENMT: General nose exam: Normal nares present Mouth: Yes dry mucous membranes Eyes: General: appearance normal, both eyes and all related structures Neck: Neck: supple and no JVD Resp: Effort & Inspection: normal respiratory effort Auscultation: clear to auscultation bilaterally Cardio: Rate: regular rate Rhythm: regular rhythm GI: GI Palp: Yes Soft to palpation Auscultation: normal bowel sounds Skin: General skin exam: normal color and no rashes or lesions noted Neuro: Other: patient is awake and alert oriented times breast person normal speech language function significantly improved left-sided hemiparesis with process is doing remarkably well Extrem: Other: bilateral iefwo-zco-rsqu amputation Psych: Mental Status: mental status grossly normal DS: Data Data Completed and Pending Completed studies during hospitalization: on December 18 the patient's white count was 7000 hemoglobin was 9.6 hematocrit of 30.1 and a platelet count of [id number] on the same date sodium was 137 potassium 3.6 BUN of 27 and creatinine of 0.9 Discharge Plan Discharge Attending physician on discharge: Josue Gama Consulting providers: Leonid Prado Discharging Clinician: Josue Gama Patient Disposition: Home, Self-Care Activity: may shower and no driving Diet: as tolerated Discharge Instructions: follow up with your primary care physician in 1-2 weeks for general health maintenance and well being. Patient Instructions: Antibiotic Form, Urinary Incontinence (GEN) Stand Alone Forms: General Discharge Information Follow-up/Referrals: Gilberto Harman MD [Other] (follow up with Dr Gilberto Harman (vascular surgery/cardiology) in 2 weeks. call to make an appointment.) Doreen Thornton MD [Other] (follow up in 2 weeks. call to make an appointment. ) Discharge Medications: New melatonin 3 mg Tablet 6 mg PO HS Qty: 0 RF: 0 Continued hydrocodone-acetaminophen [[place]] 5-325 mg
--- NOTE | 2020-01-07 12:25 | WPDCN ---
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 basis [facility] Past Medical History Medical History (Updated 12/27/19 @ 07:24 by Josue Gama MD) Chronic kidney disease Coronary artery disease Diabetes mellitus Surgical History Surgical History (Updated 12/17/19 @ 14:21 by Josue Gama MD) S/P bilateral BKA (below knee amputation) Family History Family History (Updated 12/14/19 @ 15:57 by Tamara Figueroa RN) Other Unknown family medical history Social History Social History Smoking status: Never smoker Alcohol intake: never Substance use: never Spiritual care concerns: No Agree to blood products: Yes Meds Home Medications and Allergies Home Medications Medication Instructions Recorded Confirmed Type bisacodyl 10 mg [place] DAILY PRN 12/14/19 12/14/19 History hydrocodone-acetaminophen [[place]] 1 tablet PO Q4H PRN 12/14/19 12/14/19 History atorvastatin 40 mg PO HS #30 tablet 12/31/19 Rx melatonin 6 mg PO HS #0 tablet 12/31/19 Rx metoprolol succinate 50 mg PO DAILY #30 tablet 12/31/19 Rx Allergies Allergy/AdvReac Type Severity Reaction Status Date / Time No Known Allergies Allergy Verified 12/14/19 22:22 Results Labs CBC & Chem 7: 12/29/19 04:31 12/29/19 04:31
== END 2020-01-01 15:00 | disposition home or self-care (01) | DRG 57 ==
PROVIDERS: Admitting Provider Psychiatry & Neurology Neurology; Visit Provider Psychiatry & Neurology Neurology
DX: I69.352 Hemiplegia and hemiparesis following cerebral infarction affecting left dominant side (principal); I13.0 Hypertensive heart and chronic kidney disease with heart failure and stage 1 through stage 4 chronic kidney disease, or unspecified chronic kidney disease; I69.322 Dysarthria following cerebral infarction; I69.392 Facial weakness following cerebral infarction; D49.0 Neoplasm of unspecified behavior of digestive system; I65.22 Occlusion and stenosis of left carotid artery; E11.42 Type 2 diabetes mellitus with diabetic polyneuropathy; E78.5 Hyperlipidemia, unspecified; E11.22 Type 2 diabetes mellitus with diabetic chronic kidney disease; I50.9 Heart failure, unspecified; I25.10 Atherosclerotic heart disease of native coronary artery without angina pectoris; N18.9 Chronic kidney disease, unspecified; R32 Unspecified urinary incontinence; Z89.512 Acquired absence of left leg below knee; Z89.511 Acquired absence of right leg below knee; Z48.812 Encounter for surgical aftercare following surgery on the circulatory system
CPT/HCPCS: 36415; 70490; 80048; 85025; 87081; 92523; 92610; 97110; 97112; 97116; 97140; 97161; 97162; 97165; 97530; 97535; 97542; A9270